=== PATIENT | male | born 1985 | race Caucasian/White ===

== ENCOUNTER 2021-01-05 12:22 | Emergency (ER) | payer MEDICAID ==
[~2021-01-05] VITALS: Ht 172.7 cm; Wt 84.0 kg
--- NOTE | 2021-01-05 12:27 | NUR ---
ERMD AT BEDSIDE FOR EVALUATION.
--- NOTE | 2021-01-05 12:52 | NUR ---
PATIENT BIB EMS WITH CHIEF C/O DEPRESSION. VSS EN ROUTE PER EMS. PATIENT HAS SI THOUGHTS, BUT DOES NOT ENDORSE PLAN OR WANTING TO ENACT ANY PLAN. PATIENT WAS PICKED UP FROM [facility]. PATIENT REPORTS HE HAS PTSD AND IS FEELING DEPRESSED, "I WOULD LIKE SOMEONE TO TALK TO." PATIENT STATES HE ALWAYS HAS THOUGHTS OF HARMING HIMSELF, BUT HAS NEVER ACTED ON THEM AND HAS NO PLAN TO ACT ON THEM. BENNY RAMÍREZ, CALL LIGHT WITHIN REACH.
--- NOTE | 2021-01-05 13:22 | NUR ---
PATIENT SITTING IN [place] ON PHONE, NADN, CALL LIGHT WITHIN REACH.
--- NOTE | 2021-01-05 13:51 | NUR ---
PATIENT REFUSED PSYCH ANNE MIHCEL AT THIS TIME, STATES HE DOESN'T WANT TO GET OFF THE PHONE RIGHT NOW.
--- NOTE | 2021-01-05 14:11 | NUR ---
ANNE CHRISTIANSON AT BEDSIDE FOR EVALUATION.
[2021-01-05] MEDS ORDERED: BUPROPION 75 MG TABLET PO ONE (14:30)
[2021-01-05 15:10] VITALS: BP 147/96
== END 2021-01-05 15:18 | disposition home or self-care (01) ==
LOC: ED 15:12
DX: F33.9 Major depressive disorder, recurrent, unspecified (principal); R45.851 Suicidal ideations; Z87.891 Personal history of nicotine dependence
CPT/HCPCS: 99284